=== PATIENT | female | born 1995 | race Caucasian/White ===

== ENCOUNTER 2018-06-27 18:51 | Emergency (ER) | payer OTHER ==
[2018-06-27 19:04] VITALS: TEMP 98.8
[2018-06-27] MEDS ORDERED: Sodium Chloride 0.9% 1,000 ML IV ONE (19:08)
--- NOTE | 2018-06-27 19:09 | C.PDOC ---
History Of Present Illness 23 year old female,18 weeks , presents to the ED c/o vaginal bleeding that started on Tuesday after having intercourse. Patient denies any pelvic pain , vaginal discharge, dysuria, hematuria, nausea, vomit, diarrhea, abdominal pain. Time Seen by Provider: 06/27/18 19:08 Chief Complaint (Nursing): Female Genitourinary History Per: Patient History/Exam Limitations: no limitations Onset/Duration Of Symptoms: Days Current Symptoms Are (Timing): Still Present Quality Of Discomfort: "Pain" Associated Symptoms: denies: Nausea, Vomiting, Diarrhea Recent travel outside of the [place]: No Additional History Per: Patient Abnormal Vaginal Bleeding: Yes Last Menstral Period: 02/13/18 Past Medical History Reviewed: Historical Data, Nursing Documentation, Vital Signs Vital Signs: Last Vital Signs Temp 98.8 F 06/27/18 18:58 Pulse 90 06/27/18 18:58 Resp 18 06/27/18 18:58 BP 114/67 06/27/18 18:58 Pulse Ox 99 06/27/18 21:56 - Medical History PMH: No Chronic Diseases Surgical History: No Surg Hx Family History: States: No Known Family Hx - Social History Hx Alcohol Use: No Hx Substance Use: No - Immunization History Hx Tetanus Toxoid Vaccination: No Hx Influenza Vaccination: No Hx Pneumococcal Vaccination: No Review Of Systems Constitutional: Negative for: Fever, Chills Cardiovascular: Negative for: Chest Pain, Palpitations Respiratory: Negative for: Shortness of Breath Gastrointestinal: Negative for: Nausea, Vomiting, Abdominal Pain Genitourinary: Positive for: Vaginal Bleeding. Negative for: Dysuria, Hematuria , Vaginal Discharge Musculoskeletal: Negative for: Back Pain Neurological: Negative for: Weakness, Numbness Physical Exam - Physical Exam Appears: Non-toxic, No Acute Distress Skin: Warm, Dry Head: Normacephalic Eye(s): bilateral: Normal Inspection Oral Mucosa: Moist Neck: Supple Chest: Symmetrical Cardiovascular: Rhythm Regular Respiratory: No Rhonchi, No Stridor, No Wheezing Gastrointestinal/Abdominal: Soft, No Tenderness, No Guarding, No Rebound Back: Normal Inspection Extremity: No Tenderness, No Swelling Extremity: Bilateral: Atraumatic, Normal Color And Temperature, Normal ROM Neurological/Psych: Oriented x3, Normal Speech Gait: Steady ED Course And Treatment - Laboratory Results Result Diagrams: 06/27/18 19:31 06/27/18 19:31 O2 Sat by Pulse Oximetry: 99 (ON RA) Pulse Ox Interpretation: Normal - CT Scan/US Pelvic US Other Rad Studies (CT/US): Read By Radiologist, Radiology Report Reviewed CT/US Interpretation: EXAM: US Uterus, Limited. EXAM DATE/TIME: Exam ordered 06/27/2018 8:34 PM. CLINICAL HISTORY: 23 years old, female; Signs and symptoms; Lmp or gestational age (in weeks): 02-13-19; Other: Vag. bleed; ; Additional info: Vag bleed, 18 weeks preg. TECHNIQUE: Real-time ultrasound of the maternal uterus (limited) with image documentation. COMPARISON: No relevant prior studies available. FINDINGS: Biometry. BPD = 4.2 cm; Estimated Menstrual Age = 18 w 5 d; Range = 17 [id number]. HC = 16.06 cm; Estimated Menstrual Age = 18 w 6 d; Range = 17 [id number]. AC = 13.83 cm; Estimated Menstrual Age = 19 w 2 d; Range = 17 [id number]-[id number]. FL = 2.97 cm; Estimated Menstrual Age = 19 w 1 d; Range = 17 [id number]-[id number]. HC/AC Ratio = 1.16 ( normal 1.09-1.26). EFW = 277 g (46.5 percentile). Amniotic fluid: Qualitatively normal. Placenta: Posterior and free of the cervical os. PAULETTE RAYMUNDO | Preliminary Radiology Report. CONFIDENTIALITY STATEMENT. This report is intended only for the use of the referring physician, and only in accordance with law, If you received this in error, call [phone]. Page 2 of 2. Presentation: Breech. HR = 136 bpm. Cervix: 3.09 cm in length and closed. Survey. Lateral ventricles: Normal. Kidneys: Normal. Bladder: Normal. Abdominal CORD insertion: Normal. IMPRESSION: 1. Single live intrauterine with an estimated menstrual age of 19 weeks and 0 days plus or. -1 week and 2 days. 2. Incomplete survey. 3. Breech presentation. Thank you for allowing us to participate in the care of your patient. Dictated and Authenticated by: Inna Garza MD. 06/27/2018 9:53 PM Eastern Time ([place] & [place]) Progress Note: Plan: - Labs. - IV fluids. - UA Reevaluation Time: 21:57 Reassessment Condition: Improved Disposition Counseled Patient/Family Regarding: Studies Performed, Diagnosis, Need For Followup - Disposition Referrals: Eden Bernardo MD [Staff Provider] - Disposition: HOME/ ROUTINE Disposition Time: 19:08 Condition: FAIR Instructions: Bleeding With (DC) Forms: [employer] (Yi) - Clinical Impression Clinical Impression: Vaginal bleeding during - Scribe Statement The provider has reviewed the documentation as recorded by the Scribe Juan Dominguez All medical record entries made by the Scribe were at my direction and personally dictated by me. I have reviewed the chart and agree that the record accurately reflects my personal performance of the history, physical exam, medical decision making, and the department course for this patient. I have also personally directed, reviewed, and agree with the discharge instructions and disposition.
[2018-06-27 19:34] LABS: BASO % 0.2 % (0.0-2.0); EOS # 0.6 K/uL (0.0-0.7); EOS % 5.7 % (0.0-4.0); HEMOGLOBIN 11.4 g/dL (11.0-16.0); LYMPH # 2.5 K/uL (1.0-4.3); LYMPH % 22.9 % (20.0-40.0); MEAN CELL VOLUME 84.1 fL (81.0-99.0); MEAN CORPUSCULAR HGB CONC 34.5 g/dL (33.0-37.0); MEAN PLATELET VOLUME 8.5 fL (7.2-11.7); MONO # 0.7 K/uL (0.0-0.8); MONO % 6.6 % (0.0-10.0); NEUT % 64.6 % (50.0-75.0); RBC 3.93 Mil/uL (3.80-5.20); RED CELL DISTRIBUTION WIDTH 13.8 % (11.5-14.5); WHITE BLOOD COUNT 10.8 K/uL (4.8-10.8)
[2018-06-27 19:48] LABS: INR 1.1; PROTHROMBIN TIME 12.2 SECONDS (9.7-12.2)
[2018-06-27 19:50] LABS: SQUAMOUS EPITHIAL 1 /hpf (0-5); URINE BACTERIA RARE (<OCC); URINE BILIRUBIN NEGATIVE (NEGATIVE); URINE BLOOD NEGATIVE (NEGATIVE); URINE CLARITY Clear (Clear); URINE COLOR Straw (YELLOW); URINE GLUCOSE (UA) NORMAL (Normal); URINE LEUKOCYTE ESTERASE TRACE Leu/uL (Negative); URINE PROTEIN NEGATIVE (NEGATIVE); URINE UROBILINOGEN NORMAL mg/dL (0.2-1.0)
[2018-06-27 20:08] LABS: ALB/GLOB RATIO 1.4 (1.0-2.1); ALBUMIN 3.8 g/dL (3.5-5.0); ALT/SGPT 32 U/L (9-52); AST/SGOT 17 U/L (14-36); BLOOD UREA NITROGEN 11 mg/dL (7-17); CALCIUM 9.3 mg/dl (8.6-10.4); GFR AFRICAN-AMERICAN > 60; GFR NON-AFRICAN AMERICAN > 60
[2018-06-27 22:20] VITALS: BP 112/70; PULSE 62; RESP 14; O2SAT 100
--- NOTE | 2018-06-28 06:50 | US ---
Date of service: 06/27/2018 PROCEDURE: OB Pelvic Ultrasound HISTORY: vag bleed, 18 weeks preg LMP: 02/13/2018 COMPARISON: None available. FINDINGS: UTERUS: Gestational sac: Single intrauterine gestation. Heart rate: 135 bpm. age (Ultrasound estimated): 19 weeks 0 day 1 week 2 days Paola-gestational hemorrhage: None. Date of delivery (Ultrasound estimated) : 11/21/2018 The placenta is seen at the posterior wall. . CERVIX: Measures 3.0 cm. Long and closed. No cervical abnormality seen. RIGHT OVARY: The maternal right ovary was not visualized. LEFT OVARY: The maternal left ovary was not visualized FREE FLUID: None. OTHER FINDINGS: None. IMPRESSION: Single intrauterine live with ultrasound estimated gestational age of 19 weeks 0 day 1 week 2 days. Estimated date of delivery by ultrasound is 11/21/2018. The uterine cervix is closed measures 3.1 centimeter. The amount of amniotic fluid is adequate. Please notice that this study was not performed to evaluate the anatomy. heart activity is visualized at the heart rate is 135 the p.m.. Preliminary report was submitted by [facility].
== END 2018-06-27 22:19 | disposition home or self-care (01) ==
LOC: C.ER 18:51
DX: O20.9 Hemorrhage in early pregnancy, unspecified (principal); Z3A.19 19 weeks gestation of pregnancy
CPT/HCPCS: 76815; 80053; 81001; 84702; 85025; 85610; 85730; 86850; 86900; 99284; J7030

== ENCOUNTER 2018-10-05 23:15 | Emergency (ER) | payer OTHER ==
[2018-10-05 23:28] VITALS: BP 126/73; PULSE 87; RESP 20; TEMP 97.8; O2SAT 100
--- NOTE | 2018-10-06 00:11 | C.PDOC ---
History Of Present Illness 23 year old female presents to the ER with a complaint of a puritic rash for the past 4 days. Patient states she recently began using a new oil for her stretch machado and believes the symptoms are due to that. Denies chest tightness, difficulty breathing, or SOB. Patient is also 8 months but does not have any OB complaints at this time. Time Seen by Provider: 10/05/18 23:35 Chief Complaint (Nursing): Female Genitourinary History Per: Patient History/Exam Limitations: no limitations Onset/Duration Of Symptoms: Days (4) Current Symptoms Are (Timing): Still Present Quality Of Symptoms: Other (Puritic) Recent travel outside of the [place]: No Past Medical History Reviewed: Historical Data, Nursing Documentation, Vital Signs Vital Signs: Last Vital Signs Temp 97.8 F 10/05/18 23:24 Pulse 87 10/05/18 23:24 Resp 20 10/05/18 23:24 BP 126/73 10/05/18 23:24 Pulse Ox 100 10/05/18 23:24 Family History: States: No Known Family Hx - Social History Hx Alcohol Use: No Hx Substance Use: No - Immunization History Hx Tetanus Toxoid Vaccination: No Hx Influenza Vaccination: No Hx Pneumococcal Vaccination: No Review Of Systems Constitutional: Negative for: Fever, Chills ENT: Negative for: Mouth Swelling, Throat Swelling Respiratory: Negative for: Shortness of Breath, Other (Difficulty breathing, Chest tightness) Skin: Positive for: Rash Physical Exam - Physical Exam Appears: Non-toxic Skin: Warm, Dry, Rash (Maculopapular with scattered hives) Head: Atraumatic, Normacephalic Eye(s): bilateral: Normal Inspection Ear(s): Bilateral: Normal Nose: Normal Oral Mucosa: Moist Tongue: Normal Appearing, No Swelling Lips: Normal Appearing, No Swelling Throat: Normal, No Erythema, No Other (Swelling) Neck: Normal, Supple, No Other (Swelling) Chest: Symmetrical, No Tenderness Cardiovascular: Rhythm Regular Respiratory: Normal Breath Sounds, No Accessory Muscle Use, No Stridor, No Wheezing Neurological/Psych: Oriented x3, Normal Speech ED Course And Treatment O2 Sat by Pulse Oximetry: 100 (Room air) Pulse Ox Interpretation: Normal Progress Note: Benadryl and prednisone administered. Patient is resting comfortably in the ER in no acute respiratory distress, vital are stable, will discharge home with Rx and instructions to follow up with PMD or return if symptoms worsen. 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 - Scribe Statement The provider has reviewed the documentation as recorded by the Scriblena Lockwood All medical record entries made by the Lorieiblena were at my direction and personally dictated by me. I have reviewed the chart and agree that the record accurately reflects my personal performance of the history, physical exam, medical decision making, and the department course for this patient. I have also personally directed, reviewed, and agree with the discharge instructions and disposition.
== END 2018-10-06 00:21 | disposition home or self-care (01) ==
LOC: C.ER 23:15
DX: L50.0 Allergic urticaria (principal)

== ENCOUNTER 2018-11-07 14:30 | Emergency (ER) | payer OTHER, MEDICAID ==
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
== END 2018-11-07 15:46 | disposition home or self-care (01) ==
LOC: C.EROB 14:48
DX: O47.1 False labor at or after 37 completed weeks of gestation (principal); Z3A.37 37 weeks gestation of pregnancy

== ENCOUNTER 2018-11-15 07:29 | Inpatient (IN) | payer OTHER, MEDICAID ==
[2018-11-15 09:36] VITALS: BMI 30.9
[2018-11-15] MEDS: Lactated Ringer's 1,000 ML IV SCH ×2 (10:13→18:57)
[2018-11-15 11:07] LABS: SQUAMOUS EPITHIAL 10 /hpf (0-5); URINE BACTERIA RARE (<OCC); URINE BILIRUBIN NEGATIVE (NEGATIVE); URINE BLOOD NEGATIVE (NEGATIVE); URINE CALCIUM OXALATE CRYSTALS OCC /hpf (<OCC); URINE CLARITY Hazy (Clear); URINE COLOR Yellow (YELLOW); URINE GLUCOSE (UA) NORMAL (Normal); URINE LEUKOCYTE ESTERASE 2+ Leu/uL (Negative); URINE PROTEIN NEGATIVE (NEGATIVE)
[2018-11-15 11:11] LABS: BASO % 0.5 % (0.0-2.0); EOS # 0.4 K/uL (0.0-0.7); EOS % 5.2 % (0.0-4.0); HEMOGLOBIN 12.4 g/dL (11.0-16.0); LYMPH # 2.2 K/uL (1.0-4.3); LYMPH % 27.1 % (20.0-40.0); MEAN CELL VOLUME 84.5 fL (81.0-99.0); MEAN CORPUSCULAR HEMOGLOBIN 28.1 pg (27.0-31.0); MEAN CORPUSCULAR HGB CONC 33.2 g/dL (33.0-37.0); MONO # 0.6 K/uL (0.0-0.8); MONO % 7.5 % (0.0-10.0); NEUT # 4.8 K/uL (1.8-7.0); NEUT % 59.7 % (50.0-75.0); NRBC % 0.1 % (0.0-2.0); RBC 4.43 Mil/uL (3.80-5.20); RED CELL DISTRIBUTION WIDTH 14.6 % (11.5-14.5); WHITE BLOOD COUNT 8.1 K/uL (4.8-10.8)
[2018-11-15] MEDS ORDERED: Oxytocin 30 UNIT 30 UNITS/500 ML BAG IV ONE ×3 (11:13→14:00)
[2018-11-15 11:17] LABS: ALB/GLOB RATIO 1.1 (1.0-2.1); ALBUMIN 3.4 g/dL (3.5-5.0); ALT/SGPT 28 U/L (9-52); AST/SGOT 22 U/L (14-36); BLOOD UREA NITROGEN 12 mg/dL (7-17); CALCIUM 9.2 mg/dl (8.6-10.4); GFR NON-AFRICAN AMERICAN > 60
[2018-11-15] MEDS ORDERED: Fentanyl/Bupivacaine HCl 250 ML EPI ONE (18:16)
[2018-11-15] MEDS ORDERED: Benzocaine/Menthol 20%-0.5% Topical Spray (60 ml) TOP PRN (22:46)
[2018-11-15] MEDS ORDERED: Oxycodone/Acetaminophen 5/325 mg Tab PO PRN ×2 (22:46)
[2018-11-16 07:53] LABS: BASO % 0.3 % (0.0-2.0); EOS # 0.2 K/uL (0.0-0.7); HEMOGLOBIN 10.8 g/dL (11.0-16.0); LYMPH # 2.1 K/uL (1.0-4.3); MEAN CELL VOLUME 84.3 fL (81.0-99.0); MEAN CORPUSCULAR HEMOGLOBIN 28.3 pg (27.0-31.0); MEAN CORPUSCULAR HGB CONC 33.6 g/dL (33.0-37.0); MONO % 8.2 % (0.0-10.0); NEUT # 8.9 K/uL (1.8-7.0); NEUT % 72.5 % (50.0-75.0); RBC 3.82 Mil/uL (3.80-5.20); RED CELL DISTRIBUTION WIDTH 14.5 % (11.5-14.5)
[2018-11-16 07:54] LABS: WHITE BLOOD COUNT 12.3 K/uL (4.8-10.8)
[2018-11-16] MEDS: Multiple Vitamins Tab PO SCH (10:45)
[2018-11-16 11:24] VITALS: RESP 18
--- NOTE | 2018-11-16 13:37 | OBADHP ---
Datetime: 11/15/2018 18:10 Amniotic Fluid Color, Provider: Clear Datetime: 11/15/2018 16:22 Presentation-Admit: Vertex Gestation - Est Wks by US: 38.2 Vital Signs Provider: Reviewed; Within Normal Limits Datetime: 11/15/2018 08:37 IP Chief Complaint Other: Early labor Low ALANIS, per Dr. Bernardo Admit Comment, IP Provider: 23 yo female G1 with an IUP at 38.2 weeks and c/o of irregular contracti ons that she is feeling more intense now and Hx of Low ALANIS, per Dr. Bernardo information. Denies any LOF , VB or VD. Admits to adequate FM. PMHx and PSHx negative Meds.PNV NKDA Social Hx Negative x 3 A/P Term Early labor Hx of Low ALANIS, Per Dr. Bernardo NST Reactive Will admit for augmentation of labor, as per Dr. Bernardo Will order Pitocin per Dr. Bernardo's request Anticipate a vaginal delivery Pelvic Type - PN: Adequate Extremities - PN: Normal Abdomen - PN: Normal Back - PN: Normal Breast - PN: Not Done Lungs - PN: Normal Heart - PN: Normal Thyroid - PN: Normal Neurologic - PN: Normal HEENT - PN: Normal General - PN: Normal FHR - Baseline A Provider: 120 Membranes, Provider: Intact Contraction Comments Provider: Irregular IP Hx Assessment: PNC records reviewed IP Chief Complaint: Uterine contractions; evaluation NICHD Variability Prov Fetus A: Marked >25bpm NICHD Accel Fetus A IP Provider: 10X10 FHR Category Provider Fetus A: Category I NICHD Decel Fetus A IP Provider: None Dilatation, Provider: 2-3 Effacement, Provider: 90 Station, Provider: -3 Genitourinary Exam: Normal DTRs - PN: Normal EGA AdmitDate IP: 38.2 IP Adm Impression: Term, intrauterine ; No Active Labor; Intact Membranes IP Admit Plan: Admit to unit; Initiate labor augmentation protocol
--- NOTE | 2018-11-16 13:37 | OBPN ---
Datetime: 11/15/2018 18:10 IP Progress Note Comment: Patient seen and examined at bedside. Patient is uncomfortable and in tear s. Cx's Q 2-3 minutes wit Pitocin at 10 mU/min and about 200-225 MVU in 10 minutes VSS SVE: 4/100/0 EFM: 135bpm, moderate variability, +accels, - decels A/P: 23 year old at 38w2d who presented for augmentation of labor -Stable, afebrile -Category I tracing -Patient requesting epidural -Anesthesia notified -Will hydrate the patient for epidural -Dr. Bernardo aware of patient's condition -Plan discussed with Dr Eren Alas DO PGY-2
--- NOTE | 2018-11-16 13:37 | OBPN ---
Datetime: 11/15/2018 18:10 IP Progress Impression: Normal progression of labor IP Progress Plan: Continue present management Amniotic Fluid Color, Provider: Clear Datetime: 11/15/2018 16:22 IP Informed Consent Obtain: Vaginal Delivery IP Procedures: Artificial ROM; Intrauterine Pressure Catheter; Scalp Electrode; Sterile Vag Ex am Gestation - Est Wks by US: 38.2 Presentation-Admit: Vertex IP Progress Note Comment: Patient seen and examined at bedside. Patient resting comfortably. Membranes artificially ruptured. Fluid was small amount and clear. IUPC and scalp electrode applied. VSS SVE: 3-4/90/-1 EFM: 130s, moderate variability, +accels, no decels TOCO: Q2-3 min A/P: 23 year old at 38w2d here for augmentation of labor -Stable, afebrile -Epidural offered, patient declines at this time -Continue pitocin for augmentation -Plan discussed with Dr Eren Alas DO PGY-2 Vital Signs Provider: Reviewed; Within Normal Limits Datetime: 11/15/2018 08:37 Membranes, Provider: Intact Contraction Comments Provider: Irregular FHR - Baseline A Provider: 120 NICHD Accel Fetus A IP Provider: 10X10 FHR Category Provider Fetus A: Category I NICHD Variability Prov Fetus A: Marked >25bpm Dilatation, Provider: 2-3 Effacement, Provider: 90 Station, Provider: -3 NICHD Decel Fetus A IP Provider: None
--- NOTE | 2018-11-16 13:37 | OBHP ---
Datetime: 11/15/2018 08:37 IP Adm Impression: Term, intrauterine ; No Active Labor; Intact Membranes IP Chief Complaint Other: Early labor Low ALANIS, per Dr. Bernardo IP Admit Plan: Admit to unit; Initiate labor augmentation protocol Admit Comment, IP Provider: 23 yo female G1 with an IUP at 38.2 weeks and c/o of irregular contracti ons that she is feeling more intense now and Hx of Low ALANIS, per Dr. Bernardo information. Denies any LOF , VB or VD. Admits to adequate FM. PMHx and PSHx negative Meds.PNV NKDA Social Hx Negative x 3 A/P Term Early labor Hx of Low ALANIS, Per Dr. Bernardo Will admit for augmentation of labor, as per Dr. Bernardo Will order Pitocin Pelvic Type - PN: Adequate Extremities - PN: Normal Abdomen - PN: Normal Back - PN: Normal Breast - PN: Not Done Lungs - PN: Normal Heart - PN: Normal Thyroid - PN: Normal Neurologic - PN: Normal HEENT - PN: Normal General - PN: Normal EGA AdmitDate IP: 38.2 Vital Signs Provider: Reviewed; Within Normal Limits IP Chief Complaint: Uterine contractions; evaluation Genitourinary Exam: Normal DTRs - PN: Normal
--- NOTE | 2018-11-16 13:38 | OBPN ---
Datetime: 11/15/2018 21:39 IP Progress Impression: Normal progression of labor IP Informed Consent Obtain: Induction of Labor IP Progress Plan: Continue present management Membranes, Provider: Ruptured FHR - Baseline A Provider: 125 IP Progress Note Comment: delyaed entry pt seen and examiend for prgoression of labr s/p epidural VSS /-2 arom celar ptiocn /in a/p @ 38+ wks in labor con mikhail RUSSO Variability Prov Fetus A: Moderate 6-25bpm Dilatation, Provider: 5 Effacement, Provider: 70 Station, Provider: -2
--- NOTE | 2018-11-16 13:38 | OBDS ---
MATERNAL INFORMATION Provider Comments: pt was fully dilated and pushing. verbal consent give for right mediolateral epis itomy. Atruamic, spontanoeu delivery of head in OA postion, no nuchal cord noted. aturmatic, spotneou s delivery of anteiro followed by poseiro shoulder followed by delivery of angelica body. boht oral and na juanita passaes of angelica baby were bubl suctined. umbiucls cord was clmaped and cut. baby handed to mother on abodmen with rn assisawendi. cord blood and cord gases collecatec and sent x 2. sponteanodu deliver of intact palcenta with membrenas. fundus firm. good hemosaiss, right mediolaterl episotm rpeired wi th 2-0 adn 3-0 chormcm. no cmpicaiotns live male ifnat cephaic presntatin agaprs 9, 9 ebl 300 ml LABOR SUMMARY EDC: 11/27/2018 00:00 No. Babies in Womb: 1 LABOR INFORMATION Group B Beta Strep: Negative MEMBRANES Membranes Rupture Method: Artificial Rupture of Membranes: 11/15/2018 16:22 Length of Rupture (hrs): 5.82 Amniotic Fluid Color: Clear Amniotic Fluid Amount: Moderate Amniotic Fluid Odor: None STAGES OF LABOR Stage 3 hrs: 0 Stage 3 min: 11 BABY A INFORMATION Delivery Date/Time: 11/15/2018 22:11 Method of Delivery: Vaginal Born in Route : No : N/A Forceps: N/A Vacuum Extraction: N/A Shoulder Dystocia : No SHOULDER DYSTOCIA BABY A Delivery Date/Time: 11/15/2018 22:11 PRESENTATION/POSITION BABY A Presentation: Cephalic Cephalic Presentation: Vertex Vertex Position: Occipital Anterior Breech Presentation: N/A PLACENTA INFORMATION BABY A Placenta Delivery Time : 11/15/2018 22:22 Placenta Method of Delivery: Expressed Placenta Status: Delivered SCORES BABY A Heart Rate 1 min: >100 bpm Resp Effort 1 min: Good Cry Reflex Irritability 1 min: Cough or Sneeze or Pulls Away Muscle Tone 1 min: Active Motion Color 1 min: Body [place], Extremities Blue Resuscitation Effort 1 min: Tactile Stimulation SCORE 1 MIN: 9 Heart Rate 5 min: >100 bpm Resp Effort 5 min: Good Cry Reflex Irritability 5 min: Cough or Sneeze or Pulls Away Muscle Tone 5 min: Active Motion Color 5 min: Body [place], Extremities Blue Resuscitation Effort 5 min: N/A SCORE 5 MIN: 9 INFORMATION BABY A Gestational Age at Delivery: 38.2 Gestational Status: Term Infant Outcome : Liveborn Condition : Stable Sex: Male IDENTIFICATION/MEDS BABY A ID Band Number: [id number] ID Band Location: Left Leg; Left Arm Sensor Applied: Yes Sensor Number: [id number] Vitamin K Given : Not Given Erythromycin Given: Not Given WEIGHT/LENGTH BABY A Infant Birthweight (gms): 3345 Weight (lb): 7 Infant Weight (oz): 6 Length Inches: 19.50 Length cms: 49.5 CORD INFORMATION BABY A No. Cord Vessels: 3 Nuchal Cord : N/A Cord Blood Taken: N/A Suction: Mouth; Nose ASSESSMENT BABY A Complications: None Physical Findings at Delivery: Caput Succedaneum Infant Respirations: Appears Normal Flour Worker/ALS Called : No Care By: Michael Bender Transferred To: Remains with Mother
--- NOTE | 2018-11-16 14:56 | OBPPN ---
Datetime: 11/16/2018 14:52 PP Pain Prov: Within normal limits PP Nausea Prov: Denies PP Flatus Prov: Yes PP BM Prov: No PP Breasts Prov: Normal PP Heart Prov: Normal PP Lungs Prov: Normal PP Abdomen/Uterus Prov: Normal PP Lochia Prov: Normal PP Vulva/Perineum Prov: Normal PP CVA Tenderness Prov: Normal PP Extremities Prov: Normal PP C/S Incision Prov: Not Applicable PP Progress Prov: Normal PP Impression Prov: Normal progression PP Plan Prov: Continue present management PP Progress Note Prov: pt seen and examiened. pt preorts pain is contlrled iwht medicin pt is ambuai tng, ovidng, passing flats, tolerated reuglar diet, dnei say nausea, vomiting, chest pain, sob, dizzy ness, heavy vaginal bleeding VSS PE GEN NAD AAO X 3 BREAST: non engorged b/l, non tender RESP: CTab/l CVS: RRR, +S1/S2 ABD: Soft, NT/ND, +BS FUNDUS: Firm at level of umbilcus, no uterine tenderness VE: miniimla lochia no foul odor EXT: no calf tenderness, negative ian's sign A/P s/p PPD #1 f/u am cbc pain managment encourage breast feeding and ambulation Vital Signs Provider PP: Reviewed; Within Normal Limits
[2018-11-17] MEDS ORDERED: Influenza Vaccine 60 MCG/0.5 ML SYR (3 yr & up) IM ONE (10:00)
[2018-11-17] MEDS: Multiple Vitamins Tab PO SCH (10:28)
--- NOTE | 2018-11-17 18:22 | OBPPN ---
Datetime: 11/17/2018 18:16 PP Pain Prov: Within normal limits PP Nausea Prov: Denies PP Flatus Prov: Yes PP BM Prov: No PP Breasts Prov: Normal PP Heart Prov: Normal PP Lungs Prov: Normal PP Abdomen/Uterus Prov: Normal PP Lochia Prov: Normal PP Vulva/Perineum Prov: Normal PP CVA Tenderness Prov: Normal PP Extremities Prov: Normal PP C/S Incision Prov: Not Applicable PP Progress Prov: Normal PP Comments Phys Exam Prov: Abdomen: Sof.t Non distended. Fundus firm, mobile, nontender, 2 FB below umbilicus. Mild lochia rubra. Extremities: no calf tenderness All other systems reviewed and are negative PP Impression Prov: Normal progression PP Plan Prov: Discharge PP Progress Note Prov: Covering Attending Note Patient seen and examined at approximately 0900 hours: received in room 450, in bed in good spirit s. Breast- and bottlefeeding. Denies headaches, nausea, vomiting, lightheadedness, dizziness. P.E.: as above. WD in NAD. awake, alert, oriented to time, person and place. Pleasnt and cooperati ve - PPD#1 H/H 10.8/32.2. Rh(+) Assessment: PPD#2, 23 y.o. P1, S/P . Afebrile, vital signs stable. H/H noted; patient is asympt omatic and hemodynamically stable. Patient is interested in OCPs for contraception. Patient is clinic ally stable. Plan: 1) Discharge home 2) See full discharge instructions Vital Signs Provider PP: Reviewed; Within Normal Limits
[2018-11-17 20:09] VITALS: BP 117/70; PULSE 94; TEMP 98; O2SAT 98
== END 2018-11-17 13:30 | disposition home or self-care (01) | DRG 807 ==
LOC: C.EROB 07:29 → C.4D 09:20 → C.4M 11-16 00:27
PROVIDERS: ADMIT Obstetrics & Gynecology; ATTEND Obstetrics & Gynecology
PROC: 10E0XZZ Delivery of Products of Conception, External Approach (ICD-10-PCS; principal; 2018-11-15)
PROC: 0W8NXZZ Division of Female Perineum, External Approach (ICD-10-PCS; 2018-11-15)
PROC: 10907ZC Drainage of Amniotic Fluid, Therapeutic from Products of Conception, Via Natural or Artificial Opening (ICD-10-PCS; 2018-11-15)
DX: O80 Encounter for full-term uncomplicated delivery (principal); Z37.0 Single live birth; Z3A.38 38 weeks gestation of pregnancy